=== PATIENT | female | born 1950 | race Caucasian/White ===

== ENCOUNTER 2025-08-26 16:40 | Emergency (ER) | payer OTHER ==
[~2025-08-26] VITALS: Ht 162.6 cm; Wt 93.9 kg
[2025-08-26 17:15] LABS: PLATELET COUNT (AUTO) 221 K/uL (150-450); RED BLOOD CELL COUNT(AUTO) 4.25 MIL/uL (4.0-5.2); RED CELL DISTRIBUTION WIDTH 13.3 % (11.5-15.0); WHITE BLOOD COUNT (AUTO) 7.1 K/uL (4.3-11.0)
[2025-08-26 17:21] LABS: CALCIUM, SERUM 8.4 mg/dL (8.5-10.1); CREATININE 1.2 mg/dL (0.6-1.3); SODIUM SERUM 139 mmol/L (136-145); UREA NITROGEN, BLOOD 27 mg/dL (7-18)
[2025-08-26 17:33] LABS: NT-PRO BNP 604 pg/mL (0-125)
[2025-08-26 18:00] VITALS: TEMP 85
[2025-08-26] MEDS ORDERED: KETOROLAC TROMETHAMINE 15 MG/ML VIAL ONE (20:46)
[2025-08-26] MEDS: KETOROLAC TROMETHAMINE 15 MG/ML VIAL IV ONE (20:48)
[2025-08-26 21:38] VITALS: BP 142/91; O2SAT 98
[2025-08-27] MEDS ORDERED: ACETAMINOPHEN ES 500 MG TABLET ONE (01:16)
[2025-08-27] MEDS: ACETAMINOPHEN ES 500 MG TABLET PO ONE (01:17)
== END 2025-08-27 03:11 | disposition short-term general hospital (02) ==
LOC: ER 16:50
DX: R07.89 Other chest pain (principal); I10 Essential (primary) hypertension; E78.00 Pure hypercholesterolemia, unspecified; E11.9 Type 2 diabetes mellitus without complications; R06.02 Shortness of breath; Z90.710 Acquired absence of both cervix and uterus
CPT/HCPCS: 99285; 96374; 71045; 93005; 85025; 80048; 36415; 84484 ×2; 83880; J1885